=== PATIENT | male | born 1995 | race Caucasian/White ===

== ENCOUNTER 2022-10-27 22:34 | Emergency (ER) | payer OTHER ==
[~2022-10-27] VITALS: Ht 167.6 cm; Wt 81.6 kg
[2022-10-27 23:12] VITALS: BP 113/71
--- NOTE | 2022-10-27 23:15 | NUR ---
TO LOBBY A/W BED AMBULATORY
--- NOTE | 2022-10-28 01:44 | NUR ---
PATIENT LEFT WITHOUT BEING SEEN BY . NO FURTHER CARE PROVIDED FOR PATIENT.
== END 2022-10-28 01:44 | disposition left against medical advice (07) ==
LOC: MED 22:34
DX: R10.9 Unspecified abdominal pain (principal); Z53.21 Procedure and treatment not carried out due to patient leaving prior to being seen by health care provider